=== PATIENT | female | born 1945 | race Caucasian/White ===

== ENCOUNTER 2022-12-24 13:15 | Outpatient (CLI) | payer OTHER | END 2022-12-24 13:37 | disposition home or self-care (01) | LOC: RAD 13:15 | DX: S93.401A Sprain of unspecified ligament of right ankle, initial encounter (principal); S82.101A Unspecified fracture of upper end of right tibia, initial encounter for closed fracture ==

== ENCOUNTER 2023-10-08 10:39 | Outpatient (CLI) | payer OTHER | END 2023-10-08 10:56 | disposition home or self-care (01) | LOC: RAD 10:39 | DX: S52.539 Colles' fracture of unspecified radius (principal) ==

== ENCOUNTER 2023-10-27 10:10 | Outpatient (CLI) | payer OTHER | END 2023-10-27 10:27 | disposition home or self-care (01) | LOC: RAD 10:10 | DX: S52.539 Colles' fracture of unspecified radius (principal) ==

== ENCOUNTER 2023-11-16 15:08 | Outpatient (CLI) | payer OTHER | END 2023-11-19 10:47 | disposition home or self-care (01) | LOC: RAD 15:08 | DX: S52.539 Colles' fracture of unspecified radius (principal) ==

== ENCOUNTER 2024-10-18 14:21 | Outpatient (CLI) | payer OTHER | END 2024-10-18 14:32 | disposition home or self-care (01) | LOC: RAD 14:21 | DX: M99.01 Segmental and somatic dysfunction of cervical region (principal); M99.02 Segmental and somatic dysfunction of thoracic region; M99.03 Segmental and somatic dysfunction of lumbar region; M99.04 Segmental and somatic dysfunction of sacral region; M99.05 Segmental and somatic dysfunction of pelvic region ==